=== PATIENT | male | born 1995 | race African-American/Black ===

== ENCOUNTER 2019-12-10 07:40 | Emergency (ER) | payer SELFPAY ==
[~2019-12-10] VITALS: Ht 185.4 cm; Wt 72.6 kg
--- NOTE | 2019-12-10 07:36 | NUR ---
ED Nurse Note: Pt arrived with RA 59 d/t left ankle pain s/p tripping on sidewalk last night at [facility]. pt denies suicidal ideation and reports that she does not have a plan. pt requested 3 tuna sandwhiches. pt is calm and cooperative. appears disheveled. pt was able to walk to restroom and urinate. pt prefers to referenced as "she". pt states she has both male and female genitalia.
--- NOTE | 2019-12-10 07:40 | NUR ---
ED Nurse Note: Pt reports having a recent in the family. Reports buying a bottle of tylenol last night but states "I did not take tylenol. I bought the bottle last night but didnt take it. I threw it away."
--- NOTE | 2019-12-10 07:40 | NUR ---
ED Nurse Note: Pt shows NAD, vital signs are stable. Will continue to monitor.
[2019-12-10 07:41] VITALS: BP 114/74
--- NOTE | 2019-12-10 07:41 | NUR ---
ED Nurse Note: Pt was provided a sandwhich and juice.
--- NOTE | 2019-12-10 07:42 | NUR ---
ED Nurse Note: Pt refusing blood draw. Informed ERMD.
--- NOTE | 2019-12-10 07:50 | NUR ---
ED Nurse Note: [employer] at bedside.
--- NOTE | 2019-12-10 08:10 | NUR ---
ED Nurse Note: Per [facility], "pt doesnt meet 5150 criteria, if pt acts out just call 911 and we will return".
--- NOTE | 2019-12-10 08:12 | NUR ---
ED Nurse Note: [employer] left bedside
--- NOTE | 2019-12-10 08:14 | NUR ---
ED Nurse Note: Pt provided with a second loraine
--- NOTE | 2019-12-10 08:41 | NUR ---
ED Nurse Note: urine specimen sent to lab. pt requesting for more food. pt compeleted both juices and sandwhiches; 100%
--- NOTE | 2019-12-10 08:55 | Emergency Room Report ---
History of Present Illness General Chief Complaint: Behavioral Complaint Source: Patient Present Illness HPI Patient presents with initially complaints that she was having thoughts of hurting herself Reports that there was a incident with a family member being hospitalized which had made her feel worse Upon arrival however patient denies any suicidal thoughts Denies any chest pain denies any other medical complaints reports that she had an acute episode where she did not Feel well however at this time has improved Denies any previous suicidal attempts denies any active Thought process of suicide or homicidal intent The [employer] have also presented to have spoken to the patient and presented the case to the PMRT team which reported that the patient does not meet criteria for Further psychiatric hold or emergent evaluation Allergies: Coded Allergies: No Known Allergies (Unverified , 12/10/19) Patient History Past Medical History: see triage record Reviewed Nursing Documentation: PMH: Agreed; PSxH: Agreed Review of Systems All Other Systems: negative except mentioned in HPI Physical Exam Vital Signs Date Time Temp Pulse Resp B/P (MAP) Pulse Ox O2 Delivery O2 Flow Rate FiO2 12/10/19 07:35 98.2 84 16 114/74 (87) 98 Room Air Sp02 EP Interpretation: reviewed, normal General Appearance: well appearing - However somewhat disheveled appearance, no apparent distress Head: normocephalic, atraumatic Eyes: bilateral eye PERRL, bilateral eye EOMI ENT: hearing grossly normal, normal pharynx, TMs + canals normal, uvula midline Neck: full range of motion, supple, no meningismus, no bony tend Respiratory: lungs clear, normal breath sounds, no rhonchi, no respiratory distress, no retraction, no accessory muscle use Cardiovascular #1: normal peripheral pulses, regular rate, rhythm, no edema, no gallop, no JVD, no murmur Gastrointestinal: normal bowel sounds, non tender, soft, no mass, no organomegaly, non-distended, no guarding, no hernia, no pulsatile mass, no rebound Musculoskeletal: normal inspection Neurologic: motor strength/tone normal, oriented x3, responsive Psychiatric: mood/affect normal - Denies any suicidal or homicidal thoughts Skin: no rash Lymphatic: normal inspection, no adenopathy Medical Decision Making Diagnostic Impression: Primary Impression: depression ER Course Upon arrival given the initial report by paramedics patient was initiated on medical clearance However Police Department has also arrived reported the patient will not be placed on Psychiatric hold Clinically patient is medically clear and stable therefore blood work was not obtained And patient disposition for close outpatient follow-up Last Vital Signs Date Time Temp Pulse Resp B/P (MAP) Pulse Ox O2 Delivery O2 Flow Rate FiO2 12/10/19 07:41 98.2 84 16 114/74 98 Room Air Status: improved Disposition: HOME, SELF-CARE Condition: Improved Referrals: [facility] Sabrina Gomez. [facility] - Patient Instructions: Depression, Adult, [id number] Additional Instructions: Patient is provided with the discharge instructions notified to follow up with primary doctor in the next 2-3 days otherwise return to the er with any worsening symptoms. Please note that this report is being documented using [employer] technology. This can lead to erroneous entry secondary to incorrect interpretation by the dictating instrument. Barrie Vásquez DO Dec 10, 2019 08:55
[2019-12-10 09:03] VITALS: BP 119/76
[2019-12-10 09:03] LABS: APPEARANCE,URINE CLEAR; BILIRUBIN, URINE NEGATIVE (NEGATIVE); GLUCOSE, URINE (UA) NEGATIVE (NEGATIVE); KETONES,URINE NEGATIVE (NEGATIVE); LEUKOCYTE ESTERASE ,URINE NEGATIVE (NEGATIVE); NITRITE,URINE NEGATIVE (NEGATIVE); PH,URINE 6.5 (4.5-8.0); PROTEIN,URINE NEGATIVE (NEGATIVE); UROBILINOGEN,URINE NORMAL MG/DL (0.0-1.0)
--- NOTE | 2019-12-10 09:04 | NUR ---
ER DISCHARGE NOTE: Patient is cleared to be discharged per ERMD, pt is aox4, on room air, with stable vital signs. pt was given dc instructions, pt was able to verbalize understanding, pt id band removed. pt is able to ambulate with steady gait. pt took all belongings. pt given meal and resources. pt offered clothing but refused. pt vss, pt appears happy and states shes ready to leave after getting meal.
[2019-12-10 09:21] LABS: COLOR,URINE YELLOW
== END 2019-12-10 09:00 | disposition home or self-care (01) ==
LOC: EDBD 07:40 → EMR 08:00
DX: F32.9 Major depressive disorder, single episode, unspecified (principal)
CPT/HCPCS: 80307; 81003; 99282